=== PATIENT | female | born 1995 | race Caucasian/White ===

== ENCOUNTER → 2023-09-13 12:45 | Outpatient (REF) | payer BC, SELFPAY | LOC: HWRAD 12:45 | PROVIDERS: ATTENDING PHYSICIAN Internal Medicine | DX: N94.6 Dysmenorrhea, unspecified (principal) | CPT/HCPCS: 76830; 76856 ==

== ENCOUNTER → 2024-09-12 13:21 | Outpatient (REF) | payer BC, SELFPAY | LOC: PNTC 13:21 | PROVIDERS: ATTENDING PHYSICIAN Obstetrics & Gynecology | DX: Z34.90 Encounter for supervision of normal pregnancy, unspecified, unspecified trimester (principal) | CPT/HCPCS: 76805; 76817 ==

== ENCOUNTER 2025-01-24 04:39 | Inpatient (IN) | payer BC, SELFPAY ==
[2025-01-24 04:54] VITALS: BMI 34.7
[2025-01-24 04:59] VITALS: BP 125/84
[2025-01-24] MEDS: LR 1000 IV ×2 (05:10→07:22)
[2025-01-24 05:34] LABS: Hematocrit 35.6 % (37.0-47.0); Hemoglobin 11.9 g/dL (12.0-16.0); Mean Corp Hgb Conc. 33.4 g/dL (33.0-37.0); Mean Corpuscular Volume 86.0 fL (81.0-99.0); Nucleated Red Blood Cells % 0 %; Platelet Count 199 10^3/uL (130-400); Red Cell Dist. Width 13.3 % (11.5-14.5)
[2025-01-24] MEDS: SUBLIMAZE 100 MCG EPIDURAL (07:02)
[2025-01-24] MEDS: FENTANYL/BUPIVACAINE 100 EPIDURAL ×2 (07:03→15:58)
[2025-01-24] MEDS: PITOCIN 30 UNITS/NSS 500 ML IV (18:00)
[2025-01-24] MEDS: PRENATAL PLUS 1 TABLET PO (22:24)
[2025-01-24] MEDS: LEXAPRO 15 MG PO (22:26)
[2025-01-24] MEDS: COLACE PO (23:00)
[2025-01-25 05:35] LABS: Hematocrit 30.4 % (37.0-47.0); Hemoglobin 10.3 g/dL (12.0-16.0)
[2025-01-25] MEDS: MOTRIN 600 MG PO ×3 (05:49→18:22)
[2025-01-25] MEDS: COLACE 100 MG PO ×2 (09:13→20:55)
[2025-01-25] MEDS: FEOSOL 325 MG PO (12:05)
[2025-01-25] MEDS: PRENATAL PLUS 1 TABLET PO (23:00)
[2025-01-25] MEDS: LEXAPRO 15 MG PO (23:00)
[2025-01-26] MEDS: MOTRIN 600 MG PO ×2 (00:33→08:24)
[2025-01-26] MEDS: COLACE 100 MG PO (08:24)
[2025-01-26] MEDS: FEOSOL 325 MG PO (08:24)
[2025-01-28 11:19] LABS: Syphilis/T. pallidum Ab Reflex Negative (Negative)
== END 2025-01-26 13:00 | disposition home or self-care (01) | DRG 807 ==
LOC: LDRP 04:39
PROVIDERS: Obstetrics & Gynecology; ADMITTING PHYSICIAN Obstetrics & Gynecology; FAMILY PHYSICIAN Internal Medicine
PROC: 0KQM0ZZ Repair Perineum Muscle, Open Approach (ICD-10-PCS; 2025-01-24)
PROC: 10E0XZZ Delivery of Products of Conception, External Approach (ICD-10-PCS; 2025-01-24)
DX: O48.0 Post-term pregnancy (principal); Z37.0 Single live birth; O77.0 Labor and delivery complicated by meconium in amniotic fluid; Z3A.40 40 weeks gestation of pregnancy; O70.1 Second degree perineal laceration during delivery; O66.0 Obstructed labor due to shoulder dystocia
CPT/HCPCS: 36415; 59025; 85014; 85018; 85025; 86780; 86850; 86900; 86901